=== PATIENT | male | born 1995 | race Caucasian/White ===

== ENCOUNTER 2018-03-02 03:26 | Emergency (ER) | payer BC ==
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
--- NOTE | 2018-03-03 10:03 | CR ---
Right hand: Four views of the right hand were obtained. Comparison: No prior right hand exam. Joint spaces are preserved. No discrete fracture or other bony abnormality is identified. Impression: 1. No abnormality is appreciated on right hand exam. Diagnostic code #1
== END 2018-03-02 05:10 | disposition home or self-care (01) ==
LOC: JD.ED 03:26
DX: S60.221A Contusion of right hand, initial encounter (principal); F10.129 Alcohol abuse with intoxication, unspecified; F17.210 Nicotine dependence, cigarettes, uncomplicated; Y90.7 Blood alcohol level of 200-239 mg/100 ml; W22.8XXA Striking against or struck by other objects, initial encounter
CPT/HCPCS: 36415; 73130; 80053; 80306; 85007; 85027; 99284; G0480; 99283